=== PATIENT | female | born 1995 | race Caucasian/White ===

== ENCOUNTER 2016-08-07 23:18 | Emergency (ER) | payer SELFPAY ==
[~2016-08-07] VITALS: Ht 177.8 cm; Wt 104.4 kg
[~2016-08-07 23:18] MED LIST: CIPR-9 PO
[2016-08-07 23:27] VITALS: BP 130/75; PULSE 87; RESP 18; TEMP 98.5; O2SAT 99
[2016-08-08] VITALS (9 sets, daily range): BP systolic 102–122; BP diastolic 40–67; PULSE 64–80; RESP 8–18; O2SAT 77–100
[2016-08-08] MEDS ORDERED: PANTOPRAZOLE SODIUM 40 MG VIAL IVP ONE (00:45)
[2016-08-08] MEDS ORDERED: FAMOTIDINE 20 MG/2 ML VIAL IV PUSH ONE (00:45)
[2016-08-08] MEDS ORDERED: HYDROmorphone HCL PF 1 MG/ML VIAL IVS ONE (00:45)
[2016-08-08] MEDS ORDERED: SODIUM CHLORIDE 0.9% FLUSH 5 ML FLUSH IVF PRN (00:45)
[2016-08-08] MEDS ORDERED: ONDANSETRON HCL 4 MG/2 ML VIAL IVP ONE (00:45)
--- NOTE | 2016-08-08 00:45 | PD ---
HPI Chief Complaint: GI Complaint Time Seen by Provider: 00:38 Travel History International Travel<30 days: No Contact w/Intl Traveler<30days: No Traveled to known affect area: No History of Present Illness HPI The patient is a 21-year-old female that complains of nausea, vomiting and diarrhea for 8 hours today. There is no blood in the vomitus or stool. She denies any fever. She complains of bilateral lower quadrant pain and a little bit of epigastric pain. She states there is no possibility of . She still has her gallbladder and appendix. PFSH Past Medical History Diminished Hearing: No GERD: Yes Immunizations Current: Yes Tetanus Vaccination: Unknown Influenza Vaccination: No ?: Not LMP: 07/24/16 : 2 Para: 2 Miscarriage: 0 Ovarian Cysts: Yes Past Surgical History Surgical History: No Previous Surgery Social History Alcohol Use: Yes (OCC) Tobacco Use: No (07/31 PPD) Substance Use: No Allergies-Medications (Allergen,Severity, Reaction): Coded Allergies: Penicillin (Verified Allergy, Severe, Hives, 08/07/16) Uncoded Allergies: ALL CILLINS (Allergy, Intermediate, HIVES, THROAT SWELLING, 07/09/16) Reported Meds & Prescriptions Reported Meds & Active Scripts Active Phenergan (Promethazine HCl) 25 Mg Tab 25 Mg PO Q6H PRN Review of Systems Except as stated in HPI: all other systems reviewed are Neg Physical Exam Narrative GENERAL: The patient is alert, oriented 3, moderately dehydrated appearing in moderate apparent distress with her lower quadrant pain. Her vital signs are normal. SKIN: Warm and dry. HEAD: Atraumatic. Normocephalic. EYES: Pupils equal and round. No scleral icterus. No injection or drainage. ENT: No nasal bleeding or discharge. Mucous membranes pink and moist. NECK: Trachea midline. No JVD. CARDIOVASCULAR: Regular rate and rhythm. No murmur appreciated. RESPIRATORY: No accessory muscle use. Clear to auscultation. Breath sounds equal bilaterally. GASTROINTESTINAL: Abdomen soft, with tenderness to direct palpation in the bilateral lower quadrants, nondistended. Hepatic and splenic margins not palpable. No guarding or rebound is present. MUSCULOSKELETAL: No obvious deformities. No clubbing. No cyanosis. No edema. NEUROLOGICAL: Awake and alert. No obvious cranial nerve deficits. Motor grossly within normal limits. Normal speech. PSYCHIATRIC: Appropriate mood and affect; insight and judgment normal. Data Data Last Documented VS Vital Signs Date Time Temp Pulse Resp B/P Pulse Ox O2 Delivery O2 Flow Rate FiO2 08/08/16 02:05 78 18 107/64 100 Room Air 08/08/16 01:05 2 08/07/16 23:27 98.5 Orders Beta Hcg (Quant/Titer) (08/08/16 00:42) Complete Blood Count With Diff (08/08/16 00:42) Comprehensive Metabolic Panel (08/08/16 00:42) Lipase (08/08/16 00:42) Urinalysis - C+S If Indicated (08/08/16 00:42) Iv Access Insert/Monitor (08/08/16 00:42) Ecg Monitoring (08/08/16 00:42) Oximetry (08/08/16 00:42) Ondansetron Inj (Zofran Inj) (08/08/16 00:45) Pantoprazole Inj (Protonix Inj) (08/08/16 00:45) Sodium Chloride 0.9% Flush (Ns Flush) (08/08/16 00:45) Famotidine Inj (Pepcid Inj) (08/08/16 00:45) Hydromorphone Pf Inj (Dilaudid Pf Inj) (08/08/16 00:45) Sodium Chlor 0.9% 1000 Ml Inj (Ns 1000 M (08/08/16 00:45) Ondansetron Inj (Zofran Inj) (08/08/16 01:30) Sodium Chlor 0.9% 1000 Ml Inj (Ns 1000 M (08/08/16 02:15) Labs Laboratory Tests Test 08/08/16 00:00 White Blood Count 8.2 TH/MM3 Red Blood Count 5.20 MIL/MM3 Hemoglobin 14.3 GM/DL Hematocrit 44.7 % Mean Corpuscular Volume 86.0 FL Mean Corpuscular Hemoglobin 27.6 PG Mean Corpuscular Hemoglobin 32.1 % Concent Red Cell Distribution Width 13.3 % Platelet Count 220 TH/MM3 Mean Platelet Volume 8.9 FL Neutrophils (%) (Auto) 88.3 % Lymphocytes (%) (Auto) 6.0 % Monocytes (%) (Auto) 5.0 % Eosinophils (%) (Auto) 0.5 % Basophils (%) (Auto) 0.2 % Neutrophils # (Auto) 7.3 TH/MM3 Lymphocytes # (Auto) 0.5 TH/MM3 Monocytes # (Auto) 0.4 TH/MM3 Eosinophils # (Auto) 0.0 TH/MM3 Basophils # (Auto) 0.0 TH/MM3 CBC Comment DIFF FINAL Differential Comment Sodium Level 141 MEQ/L Potassium Level 3.7 MEQ/L Chloride Level 106 MEQ/L Carbon Dioxide Level 21.5 MEQ/L Anion Gap 14 MEQ/L Blood Urea Nitrogen 10 MG/DL Creatinine 0.81 MG/DL Estimat Glomerular Filtration 88 ML/MIN Rate Random Glucose 138 MG/DL Calcium Level 9.2 MG/DL Total Bilirubin 1.1 MG/DL Aspartate Amino Transf 9 U/L (AST/SGOT) Alanine Aminotransferase 22 U/L (ALT/SGPT) Alkaline Phosphatase 90 U/L Total Protein 7.4 GM/DL Albumin 3.9 GM/DL Lipase 79 U/L Human Chorionic Gonadotropin, LESS THAN 1 Quant MIU/ML MDM Medical Decision Making Medical Screen Exam Complete: Yes Emergency Medical Condition: Yes Medical Record Reviewed: Yes Interpretation(s) The CBC is normal except for 88% neutrophils. The complete metabolic profile shows a GFR of 88, glucose 138, total bilirubin of 1.1 but is otherwise unremarkable. The beta-hCG is less than 1, the patient is not . Differential Diagnosis Viral gastroenteritis, colitis, appendicitis, diverticulitisunlikely, cholecystitisunlikely, , dehydration, electrolyte disorder, renal insufficiency Narrative Course The patient appears to have a viral gastritis. It is now 0-13 and the patient is successfully holding down Gatorade and has no nausea at this time. Her pain is subsided to nearly nothing. It is now 0-18 and the patient still has not urinated and we will add a third liter of saline for her hydration. Diagnosis Primary Impression: Viral gastroenteritis Additional Impression: Moderate dehydration Additional Instructions: Take the Phenergan regularly, every 6 hours. This is so that you can drink clear liquids and continue to rehydrate yourself. Your urine showed ultimately be very pale in color when you are adequately hydrated. Follow-up next week with her primary care physician. Med/Other Pt SpecificInfo: Prescription(s) given Scripts Promethazine (Phenergan)25 Mg Tab25 Mg PO Q6H PRN (Nausea/Vomiting) #30 TAB Ref 0 Prov:Maxime Esparza MD 08/08/16 Disposition: 01 DISCHARGE HOME Condition: Stable Maxime Esparza MD Aug 08, 2016 00:45
[2016-08-08] MEDS: SODIUM CHLOR 0.9% 1000 ML INJ 1,000 ML IV SCH ×2 (00:54→01:23)
[2016-08-08 01:23] LABS: AUTOMATED NEUTROPHIL # 7.3 TH/MM3 (1.8-7.7); BASOPHIL % 0.2 % (0.0-2.0); EOSINOPHIL % 0.5 % (0.0-4.0); HEMATOCRIT 44.7 % (35.0-46.0); HEMO FLAGS DIFF FINAL; LYMPHOCYTE # 0.5 TH/MM3 (1.0-4.8); MEAN CORPUSCULAR HEMOGLOBIN 27.6 PG (27.0-34.0); MEAN CORPUSCULAR HGB CONC 32.1 % (32.0-36.0); NEUT % 88.3 % (16.0-70.0); PLATELET COUNT 220 TH/MM3 (150-450); RED CELL DISTRIBUTION WIDTH 13.3 % (11.6-17.2); WHITE BLOOD COUNT 8.2 TH/MM3 (4.0-11.0)
[2016-08-08] MEDS ORDERED: ONDANSETRON HCL 4 MG/2 ML VIAL IV ONE (01:30)
[2016-08-08 01:34] LABS: CHLORIDE 106 MEQ/L (98-107); POTASSIUM 3.7 MEQ/L (3.5-5.1); SODIUM (NA) 141 MEQ/L (136-145)
[2016-08-08 01:38] LABS: ANION GAP 14 MEQ/L (5-15); BICARBONATE 21.5 MEQ/L (21.0-32.0)
[2016-08-08 01:39] LABS: BLOOD UREA NITROGEN 10 MG/DL (7-18)
[2016-08-08 01:41] LABS: ALT (GPT) 22 U/L (10-53); AST (GOT) 9 U/L (15-37); GLOMERULAR FILTRATION RATE 88 ML/MIN (>89)
[2016-08-08 01:43] LABS: TOTAL BILIRUBIN ADULT 1.1 MG/DL (0.2-1.0)
[2016-08-08 01:44] LABS: ALKALINE PHOSPHATASE 90 U/L (45-117)
[2016-08-08 01:46] LABS: BETA HCG QUANT LESS THAN 1 MIU/ML (0-5)
[2016-08-08] MEDS ORDERED: SODIUM CHLOR 0.9% 1000 ML INJ 1,000 ML IV SCH (02:15)
[2016-08-08] MEDS ORDERED: PROM25TA5 PO (02:16)
[2016-08-08] MEDS ORDERED: PROMETHAZINE INJ 25 MG/ML VIAL IM ONE (03:00)
[2016-08-08 03:01] LABS: BLOOD, URINE NEG (NEG); GLUCOSE,URINE NEG (NEG); KETONE, URINE 40 mg/dL (NEG); NITRITE,URINE NEG (NEG); PH, URINE 8.5 (5.0-8.5)
[2016-08-08 03:06] LABS: URINE COLOR AMBER (YELLW/STRAW)
[2016-08-08 03:07] LABS: MUCUS URINE MOD /lpf (OCC)
[2016-08-08 03:08] LABS: WBC, URINE 0-2 /hpf (0-5)
[2016-08-08 03:09] LABS: COMMENT (UR) CULT NOT INDICATED; CULTURE IF INDICATED CULT NOT INDICATED
== END 2016-08-08 03:21 | disposition home or self-care (01) ==
LOC: PHED 23:18
DX: A08.4 Viral intestinal infection, unspecified (principal); E86.0 Dehydration
CPT/HCPCS: 80053; 81001; 83690; 84702; 85025; 96361; 96372; 96374; 96375; 96376; 99284; C9113; J1170; J2405; J2550; J7030

== ENCOUNTER 2016-09-19 21:37 | Emergency (ER) | payer SELFPAY ==
[~2016-09-19 21:37] MED LIST changes: -CIPR-9 PO; +PROM25TA5 PO
[2016-09-19 21:41] VITALS: BP 110/70; PULSE 94; RESP 20; TEMP 98.9
[2016-09-19] MEDS ORDERED: SODIUM CHLORIDE 0.9% FLUSH 5 ML FLUSH IVF PRN (23:30)
--- NOTE | 2016-09-20 00:01 | PD ---
HPI Chief Complaint: Respiratory Symptoms Time Seen by Provider: 23:56 Travel History International Travel<30 days: No Contact w/Intl Traveler<30days: No Traveled to known affect area: No History of Present Illness HPI 22 year-old female presents to the emergency department complaining of nausea vomiting and diarrhea for 6 weeks as well as nonproductive cough. Patient's last period ended yesterday and reports was normal for her and denies . Patient is 2 para 2 AB 0. Patient has history of previous ovarian cysts. Patient denies any chronic medical conditions. Patient previously smoked cigarettes and occasionally drinks alcohol but denies substance use. No previous surgeries. Patient was seen approximately 6 weeks ago for similar presentation at that time her evaluation was reportedly negative for an acute process. Patient states she has not improved since then and has not followed up with any primary care provider. Patient takes no medications on a daily basis. Patient has taken no acetaminophen or ibuprofen. Reportedly 2 days ago her temperature was 10 1F. Patient denies any sinus pressure drainage sore throat earache productive cough chest pain abdominal pain dysuria frequency urgency hematuria skin rash or joint pain or swelling. Patient states that she is unable to tolerate oral hydration or solid food secondary to nausea vomiting and diarrhea. No other family members with similar symptoms. No recent antibiotic use. Patient does report left flank pain. No prior history of kidney stones or pyelonephritis. PFSH Past Medical History Narrative Medical GERD, ovarian cyst, immunizations current, Ab0, occasional alcohol use; nursing notes reviewed Diminished Hearing: No GERD: Yes Immunizations Current: Yes Tetanus Vaccination: > 5 Years Influenza Vaccination: No ?: Unknown LMP: NOW : 2 Para: 2 Miscarriage: 0 Ovarian Cysts: Yes Social History Alcohol Use: Yes (RARE) Tobacco Use: No (1/2 PPD) Substance Use: No Allergies-Medications (Allergen,Severity, Reaction): Coded Allergies: Penicillin (Verified Allergy, Severe, Hives, 09/19/16) Uncoded Allergies: ALL CILLINS (Allergy, Intermediate, HIVES, THROAT SWELLING, 07/09/16) Reported Meds & Prescriptions Reported Meds & Active Scripts Active No Active Prescriptions or Reported Medications Review of Systems Except as stated in HPI: all other systems reviewed are Neg (But didn't have any) Physical Exam Narrative GENERAL: Well-developed well-nourished female in no apparent distress no respiratory distress SKIN: Warm and dry. HEAD: Normocephalic. EYES: No scleral icterus. No injection or drainage. ENT: Mucous members moist airway is patent no posterior pharyngeal erythema edema or exudative change. NECK: Supple, trachea midline. No JVD or lymphadenopathy. No meningismus no nuchal rigidity CARDIOVASCULAR: Regular rate and rhythm without murmurs, gallops, or rubs. RESPIRATORY: Breath sounds equal bilaterally. No accessory muscle use. GASTROINTESTINAL: Abdomen soft, non-tender, nondistended. MUSCULOSKELETAL: No cyanosis, or edema. BACK: Nontender without obvious deformity. No CVA tenderness. Data Data Last Documented VS Vital Signs Date Time Temp Pulse Resp B/P Pulse Ox O2 Delivery O2 Flow Rate FiO2 09/19/16 22:29 Room Air 09/19/16 21:41 98.9 94 20 110/70 Orders Complete Blood Count With Diff (09/19/16 23:24) Comprehensive Metabolic Panel (09/19/16 23:24) Lipase (09/19/16 23:24) Urinalysis - C+S If Indicated (09/19/16 23:24) Iv Access Insert/Monitor (09/19/16 23:24) Ecg Monitoring (09/19/16 23:24) Oximetry (09/19/16 23:24) Sodium Chloride 0.9% Flush (Ns Flush) (09/19/16 23:30) Chest, Single Ap (09/19/16 23:24) Ed Urine Pregnancytest Poc (09/19/16 23:24) Labs Laboratory Tests Test 09/19/16 23:40 White Blood Count 6.6 TH/MM3 Red Blood Count 4.65 MIL/MM3 Hemoglobin 13.2 GM/DL Hematocrit 39.7 % Mean Corpuscular Volume 85.4 FL Mean Corpuscular Hemoglobin 28.5 PG Mean Corpuscular Hemoglobin 33.3 % Concent Red Cell Distribution Width 14.0 % Platelet Count 210 TH/MM3 Mean Platelet Volume 7.9 FL Neutrophils (%) (Auto) 70.7 % Lymphocytes (%) (Auto) 18.0 % Monocytes (%) (Auto) 9.4 % Eosinophils (%) (Auto) 1.5 % Basophils (%) (Auto) 0.4 % Neutrophils # (Auto) 4.7 TH/MM3 Lymphocytes # (Auto) 1.2 TH/MM3 Monocytes # (Auto) 0.6 TH/MM3 Eosinophils # (Auto) 0.1 TH/MM3 Basophils # (Auto) 0.0 TH/MM3 CBC Comment DIFF FINAL Differential Comment Urine Collection Type Urine Color ALIZA Urine Turbidity CLEAR Urine pH 6.0 Urine Specific [place] 1.028 Urine Protein TRACE mg/dL Urine Glucose (UA) NEG mg/dL Urine Ketones TRACE mg/dL Urine Occult Blood MOD Urine Nitrite NEG Urine Bilirubin NEG Urine Leukocyte Esterase NEG Urine RBC 0-3 /hpf Urine WBC 0-2 /hpf Urine Squamous Epithelial 0-5 /hpf Cells Urine Bacteria OCC /hpf Urine Mucus MOD /lpf Microscopic Urinalysis Comment CULT NOT INDICATED Sodium Level 141 MEQ/L Potassium Level 3.4 MEQ/L Chloride Level 106 MEQ/L Carbon Dioxide Level 26.8 MEQ/L Anion Gap 8 MEQ/L Blood Urea Nitrogen 7 MG/DL Creatinine 0.73 MG/DL Estimat Glomerular Filtration 100 ML/MIN Rate Random Glucose 90 MG/DL Calcium Level 8.6 MG/DL Total Bilirubin 0.7 MG/DL Aspartate Amino Transf 17 U/L (AST/SGOT) Alanine Aminotransferase 30 U/L (ALT/SGPT) Alkaline Phosphatase 93 U/L Total Protein 7.1 GM/DL Albumin 3.7 GM/DL Lipase 87 U/L [facility] Medical Decision Making Medical Screen Exam Complete: Yes Emergency Medical Condition: Yes Medical Record Reviewed: Yes Interpretation(s) Lhrev-[id number] hCG: negative Chest x-ray no lobar infiltrate no effusion no pneumothorax no acute disease noted Differential Diagnosis URI, gastroenteritis, electrolyte disturbance, intestinal parasite, pyelonephritis, renal colic, dehydration Narrative Course Non-ill appearing female presents reporting 6 weeks of vomiting diarrhea and more recently flank pain. IV access obtained specimens collected and sent for resulting. [id number] hCG negative @12:45 AM patient informed of lab results and is stable for outpatient management; no significant abnormalities for history of 6 weeks of diarrhea and vomiting mild hypokalemia 3.4 that can be corrected with dietary intake. Patient is otherwise stable for outpatient management and given prescription for as needed Zofran sublingual and Phenergan suppositories. Patient is encouraged follow-up with primary care provider. Diagnosis Primary Impression: Cough Additional Impression: Gastroenteritis Referrals: Primary Care Physician call for appointment Patient Instructions: General Instructions Additional Instructions: Follow clear liquid diet for 12-24 hours advance as tolerated plan/Iftikhar diet and regular diet Take medication as prescribed as needed for nausea and/or vomiting Follow-up with primary care provider Return to the emergency department for any concerns or change in condition Take acetaminophen/Tylenol every 4 hours as needed for fever 100.4F or greater May use [id number]-[id number] Robitussin as needed for cough may use [id number] Robitussin as needed for cough Add potassium containing foods and beverages to dietary intake Med/Other Pt SpecificInfo: Prescription(s) given Scripts Promethazine Supp (Phenergan Supp)25 Mg Supp25 Mg RECTAL Q6H PRN (NAUSEA OR VOMITING) #6 SUPP Ref 0 Prov:Cris Connor MD 09/20/16 Ondansetron Odt (Zofran Odt)4 Mg Tab4 Mg SL Q6HR PRN (Nausea/Vomiting) #10 TAB Ref 0 Prov:Cris Connor MD 09/20/16 Cris Connor MD Sep 20, 2016 00:01
[2016-09-20 00:14] LABS: CHLORIDE 106 MEQ/L (98-107); POTASSIUM 3.4 MEQ/L (3.5-5.1); SODIUM (NA) 141 MEQ/L (136-145)
[2016-09-20 00:15] LABS: AUTOMATED NEUTROPHIL # 4.7 TH/MM3 (1.8-7.7); BASOPHIL % 0.4 % (0.0-2.0); EOSINOPHIL # 0.1 TH/MM3 (0-0.4); EOSINOPHIL % 1.5 % (0.0-4.0); HEMATOCRIT 39.7 % (35.0-46.0); HEMO FLAGS DIFF FINAL; LYMPHOCYTE # 1.2 TH/MM3 (1.0-4.8); MEAN CELL VOLUME 85.4 FL (80.0-100.0); MEAN CORPUSCULAR HEMOGLOBIN 28.5 PG (27.0-34.0); MEAN CORPUSCULAR HGB CONC 33.3 % (32.0-36.0); MONO % 9.4 % (0.0-8.0); NEUT % 70.7 % (16.0-70.0); PLATELET COUNT 210 TH/MM3 (150-450); RED BLOOD COUNT 4.65 MIL/MM3 (4.00-5.30); WHITE BLOOD COUNT 6.6 TH/MM3 (4.0-11.0)
[2016-09-20 00:18] LABS: BLOOD, URINE MOD (NEG); GLUCOSE,URINE NEG (NEG); KETONE, URINE TRACE mg/dL (NEG); NITRITE,URINE NEG (NEG)
[2016-09-20 00:20] LABS: ANION GAP 8 MEQ/L (5-15); BICARBONATE 26.8 MEQ/L (21.0-32.0); BLOOD UREA NITROGEN 7 MG/DL (7-18)
[2016-09-20 00:23] LABS: ALT (GPT) 30 U/L (10-53); AST (GOT) 17 U/L (15-37); GLOMERULAR FILTRATION RATE 100 ML/MIN (>89)
[2016-09-20 00:24] LABS: MUCUS URINE MOD /lpf (OCC); TOTAL BILIRUBIN ADULT 0.7 MG/DL (0.2-1.0); URINE COLOR AMBER (YELLW/STRAW)
[2016-09-20 00:25] LABS: ALKALINE PHOSPHATASE 93 U/L (45-117); RBC, URINE 0-3 /hpf (0-3); SQUAMOUS EPITHELIAL CELL URINE 0-5 /hpf (0-5)
[2016-09-20 00:26] LABS: BACTERIA, URINE OCC /hpf; WBC, URINE 0-2 /hpf (0-5)
[2016-09-20 00:27] LABS: COMMENT (UR) CULT NOT INDICATED; CULTURE IF INDICATED CULT NOT INDICATED
[2016-09-20] MEDS ORDERED: ZOFR4TAB3 SL (00:43)
[2016-09-20] MEDS ORDERED: PROM1SUP7 RECTAL (00:43)
--- NOTE | 2016-09-20 00:46 | RADHPO ---
EXAM DATE/TIME: 09/19/2016 23:36 [facility] COMPARISON: No previous studies available for comparison. INDICATIONS : Cough and back pain. MEDICAL HISTORY : None. SURGICAL HISTORY : None. ENCOUNTER: Initial ACUITY: 1 day PAIN SCORE: 4/10 LOCATION: Bilateral chest FINDINGS: A single view of the chest demonstrates the lungs to be symmetrically aerated without evidence of mas s, infiltrate or effusion. The cardiomediastinal contours are unremarkable. Osseous structures are intact. CONCLUSION: No acute disease. Trae Haque MD on September 20, 2016 at 0:45 Board Certified Radiologist. This report was verified electronically.
[2016-09-20 01:21] VITALS: BP 135/74
== END 2016-09-20 01:23 | disposition home or self-care (01) ==
LOC: PHED 21:37
DX: R05 Cough (principal); K52.9 Noninfective gastroenteritis and colitis, unspecified; R10.9 Unspecified abdominal pain; E87.6 Hypokalemia; F17.200 Nicotine dependence, unspecified, uncomplicated; Z87.42 Personal history of other diseases of the female genital tract; Z87.19 Personal history of other diseases of the digestive system
CPT/HCPCS: 71010; 80053; 81001; 83690; 84703; 85025; 99284

== ENCOUNTER 2016-09-28 20:14 | Emergency (ER) | payer SELFPAY ==
[~2016-09-28] VITALS: Ht 175.3 cm; Wt 104.8 kg
[~2016-09-28 20:14] MED LIST changes: +PROM1SUP7 RECTAL; -PROM25TA5 PO; +ZOFR4TAB3 SL
[2016-09-28 20:50] VITALS: BP 109/64; PULSE 87; RESP 18; TEMP 98.7; O2SAT 98
--- NOTE | 2016-09-28 23:07 | PD ---
HPI Chief Complaint: Musculoskeletal Complaint Time Seen by Provider: 23:05 Travel History International Travel<30 days: No Contact w/Intl Traveler<30days: No Traveled to known affect area: No History of Present Illness HPI This 21-year-old female is complaining of left-sided chest pain. She's been having this pain for a couple weeks. She has had a cough and was coughing quite hard. Today she was lifting up her child and noticed that the pain was quite severe. She felt a crack on the left side with chest. This is where her pain is. Pain is aggravated by deep breathing and certain movements. PFSH Past Medical History Medical History: Denies Significant Hx Diminished Hearing: No GERD: Yes Immunizations Current: Yes Tetanus Vaccination: < 5 Years Influenza Vaccination: No ?: Unknown LMP: 2 WEEKS AGO : 2 Para: 2 Miscarriage: 0 Ovarian Cysts: Yes Past Surgical History Surgical History: No Previous Surgery Social History Alcohol Use: Yes (RARE) Tobacco Use: No (1/2 PPD) Substance Use: No Allergies-Medications (Allergen,Severity, Reaction): Coded Allergies: Penicillin (Verified Allergy, Severe, Hives, 09/19/16) Uncoded Allergies: ALL CILLINS (Allergy, Intermediate, HIVES, THROAT SWELLING, 07/09/16) Reported Meds & Prescriptions Reported Meds & Active Scripts Active Phenergan Supp (Promethazine HCl) 25 Mg Supp 25 Mg RECTAL Q6H PRN Zofran Odt (Ondansetron Odt) 4 Mg Tab 4 Mg SL Q6HR PRN Review of Systems General / Constitutional: No: Fever, Chills Eyes: No: Diploplia, Blurred Vision HENT: No: Headaches, Vertigo Cardiovascular: Positive: Chest Pain or Discomfort, No: Palpitations, Irregular Rhythm Respiratory: Positive: Cough, Pleuritic Pain Gastrointestinal: No: Nausea, Vomiting Genitourinary: No: Urgency, Frequency Musculoskeletal: No: Myalgias, Arthralgias Skin: No Itching Physical Exam Narrative GENERAL: Well-developed female SKIN: Warm and dry. HEAD: Atraumatic. Normocephalic. EYES: Pupils equal and round. No scleral icterus. No injection or drainage. ENT: No nasal bleeding or discharge. Mucous membranes pink and moist. NECK: Trachea midline. No JVD. CARDIOVASCULAR: Regular rate and rhythm. No murmur appreciated. RESPIRATORY: No accessory muscle use. Clear to auscultation. Breath sounds equal bilaterally. His tenderness to palpation of the mid chest and left-sided posterior axillary line GASTROINTESTINAL: Abdomen soft, non-tender, nondistended. Hepatic and splenic margins not palpable. MUSCULOSKELETAL: No obvious deformities. No clubbing. No cyanosis. No edema. NEUROLOGICAL: Awake and alert. No obvious cranial nerve deficits. Motor grossly within normal limits. Normal speech. PSYCHIATRIC: Appropriate mood and affect; insight and judgment normal. Data Data Last Documented VS Vital Signs Date Time Temp Pulse Resp B/P Pulse Ox O2 Delivery O2 Flow Rate FiO2 09/28/16 20:50 98.7 87 18 109/64 98 Orders Ribs, Uni (W/Exp Cxr-Min 3vw) (09/28/16 23:05) Acetamin-Hydrocod 325-5 Mg ([place] 5-325 (09/28/16 23:15) MDM Medical Decision Making Medical Screen Exam Complete: Yes Emergency Medical Condition: Yes Medical Record Reviewed: Yes Differential Diagnosis Differential includes chest wall contusion, rib fracture, pneumothorax Narrative Course Clinically the patient has well localized pain consistent with a rib fracture Rib films left side of her obtained and have been read as negative. Diagnosis Primary Impression: Rib fractures Scripts Hydrocodone-Acetaminophen (Lortab)7.5-325 Mg Tab1 Tab PO Q4H PRN (PAIN) #30 TAB Ref 0 Prov:Reggie Burnham MD 09/28/16 Disposition: 01 DISCHARGE HOME Condition: Stable Reggie Burnham MD Sep 28, 2016 23:07
[2016-09-28] MEDS ORDERED: ACETAMINOPHEN/HYDROcodone 325 MG/5 MG TAB PO ONE (23:15)
--- NOTE | 2016-09-28 23:44 | RADHPO ---
EXAM DATE/TIME: 09/28/2016 23:14 [facility] COMPARISON: No previous studies available for comparison. INDICATIONS : Left axillary rib pain for 2 hours. Patient states coughing caused the onset of pain. MEDICAL HISTORY : None. SURGICAL HISTORY : None. ENCOUNTER: Initial ACUITY: 1 day PAIN SCORE: 10/10 LOCATION: Left axillary ribs FINDINGS: Multiple views of the left ribs were performed. There is no evidence of displaced fracture. No dest ructive lesions or areas of periosteal thickening are seen. Expiratory view of the chest is negative for pneumothorax. The mediastinal structures are midline. CONCLUSION: Unremarakble examination of the left ribs and chest. Trae Daniels MD on September 28, 2016 at 23:40 Board Certified Radiologist. This report was verified electronically.
[2016-09-28] MEDS ORDERED: HYDR-3534 PO (23:52)
[2016-09-29 00:07] VITALS: RESP 18
== END 2016-09-29 00:08 | disposition home or self-care (01) ==
LOC: PHEFT 20:14
DX: S22.32XA Fracture of one rib, left side, initial encounter for closed fracture (principal); Y93.F2 Activity, caregiving, lifting; Y92.9 Unspecified place or not applicable; Y99.9 Unspecified external cause status
CPT/HCPCS: 71101; 99283

== ENCOUNTER 2017-01-11 09:56 | Observation (INO) | payer OTHER ==
[2017-01-11] VITALS (9 sets, daily range): BP systolic 83–124; BP diastolic 44–74; PULSE 63–97; RESP 16–22; TEMP 96.6–98.7; O2SAT 93–100
[~2017-01-11] VITALS: Ht 177.8 cm; Wt 93.9 kg
[~2017-01-11 09:56] MED LIST changes: +HYDR-3534 PO
[2017-01-11] MEDS ORDERED: ONDANSETRON HCL 4 MG/2 ML VIAL IVP ONE (10:15)
[2017-01-11] MEDS ORDERED: SODIUM CHLOR 0.9% 1000 ML INJ 1,000 ML IV SCH (10:15)
[2017-01-11 10:45] LABS: AUTOMATED NEUTROPHIL # 11.7 TH/MM3 (1.8-7.7); BASOPHIL % 0.2 % (0.0-2.0); EOSINOPHIL # 0.1 TH/MM3 (0-0.4); EOSINOPHIL % 0.6 % (0.0-4.0); HEMATOCRIT 44.9 % (35.0-46.0); LYMPHOCYTE # 2.1 TH/MM3 (1.0-4.8); MEAN CELL VOLUME 85.3 FL (80.0-100.0); MONO % 6.7 % (0.0-8.0); NEUT % 78.5 % (16.0-70.0); PLATELET COUNT 293 TH/MM3 (150-450); RED BLOOD COUNT 5.26 MIL/MM3 (4.00-5.30); RED CELL DISTRIBUTION WIDTH 12.8 % (11.6-17.2); WHITE BLOOD COUNT 14.9 TH/MM3 (4.0-11.0)
[2017-01-11 10:50] LABS: HEMO FLAGS DIFF FINAL
[2017-01-11 10:54] LABS: POTASSIUM 3.3 MEQ/L (3.5-5.1)
[2017-01-11 10:59] LABS: BICARBONATE 18.2 MEQ/L (21.0-32.0)
[2017-01-11] MEDS ORDERED: METOCLOPRAMIDE HCL 10 MG/2 ML VIAL IV PUSH ONE (11:00)
[2017-01-11 11:03] LABS: INDIRECT BILIRUBIN 0.8 MG/DL (0.0-0.8)
[2017-01-11] MEDS: SODIUM CHLORIDE 0.9% FLUSH 10 ML FLUSH IV FLUSH PRN ×2 (11:14→12:21)
[2017-01-11] MEDS ORDERED: ONDANSETRON HCL 4 MG/2 ML VIAL IV PUSH ONE (11:30)
[2017-01-11] MEDS ORDERED: MORPHINE SULFATE 4 MG/ML INJ IV PUSH ONE ×2 (11:30→14:30)
[2017-01-11] MEDS ORDERED: FAMOTIDINE 20 MG/2 ML VIAL IV PUSH ONE (11:30)
[2017-01-11] MEDS ORDERED: diphenhydrAMINE HCL 50 MG/ML VIAL IV PUSH ONE (12:00)
[2017-01-11 13:22] LABS: BETA HCG QUANT LESS THAN 1 MIU/ML (0-5)
[2017-01-11] MEDS ORDERED: IOHEXOL 350 MG/ML 10 ML VIAL (for RAD DIAG) IV ONE (13:45)
--- NOTE | 2017-01-11 14:04 | RADHPO ---
EXAM DATE/TIME: 01/11/2017 13:31 [facility] COMPARISON: No previous studies available for comparison. INDICATIONS : Upper abdominal pain. Nausea, vomiting and diarrhea. IV CONTRAST: 85 cc Omnipaque 350 (iohexol) IV ORAL CONTRAST: No oral contrast ingested. RADIATION DOSE: 15.46 CTDIvol (mGy) MEDICAL HISTORY : Gastroesophageal reflux disease. SURGICAL HISTORY : None. ENCOUNTER: Initial ACUITY: 1 day PAIN SCALE: 7/10 LOCATION: Bilateral upper quadrant TECHNIQUE: Volumetric scanning of the abdomen and pelvis was performed. Using automated exposure control and ad justment of the mA and/or kV according to patient size, radiation dose was kept as low as reasonably achievable to obtain optimal diagnostic quality images. FINDINGS: LOWER LUNGS: The visualized lower lungs are clear. LIVER: Mild hepatomegaly is noted. Homogeneous density without lesion. There is no dilation of the biliary tree. No calcified gallstones. SPLEEN: Mild splenomegaly is noted. PANCREAS: Within normal limits. KIDNEYS: Normal in size and shape. There is no mass, stone or hydronephrosis. ADRENAL GLANDS: Within normal limits. VASCULAR: There is no aortic aneurysm. BOWEL/MESENTERY: The stomach, small bowel, and colon demonstrate no acute abnormality. There is no free intraperitone al air or fluid. ABDOMINAL WALL: Within normal limits. RETROPERITONEUM: There is no lymphadenopathy. BLADDER: No wall thickening or mass. REPRODUCTIVE: Within normal limits. INGUINAL: There is no lymphadenopathy or hernia. MUSCULOSKELETAL: Mild scoliosis of the thoraco-lumbar spine is noted. CONCLUSION: 1. Mild hepatosplenomegaly. 2. Mild scoliosis of the thoraco-lumbar spine. Papi Amaro MD on January 11, 2017 at 13:59 Board Certified Radiologist. This report was verified electronically.
[2017-01-11] MEDS ORDERED: PROCHLORPERAZINE INJ 10 MG/2 ML VIAL IV PUSH ONE (14:30)
--- NOTE | 2017-01-11 14:54 | PD ---
HPI Chief Complaint: Abdominal Pain Time Seen by Provider: 10:13 Travel History International Travel<30 days: No Contact w/Intl Traveler<30days: No Traveled to known affect area: No History of Present Illness HPI Patient is a 21-year-old female who comes in complaining of nausea, vomiting, diarrhea that started this morning. Last thing she ate was pizza, but no one else sick from eating it. She says she has some epigastric abdominal pain. She has not had any fever or chills. She denies any sick contacts. [facility] Past Medical History Diminished Hearing: No GERD: Yes Immunizations Current: Yes ?: Not LMP: "DUE ANY DAY" : 2 Para: 2 Miscarriage: 0 Ovarian Cysts: Yes Social History Alcohol Use: Yes (RARE) Tobacco Use: No (1/2 PPD) Substance Use: No Allergies-Medications (Allergen,Severity, Reaction): Coded Allergies: Penicillin (Verified Allergy, Severe, Hives, 01/11/17) Uncoded Allergies: ALL CILLINS (Allergy, Intermediate, HIVES, THROAT SWELLING, 07/09/16) Reported Meds & Prescriptions Reported Meds & Active Scripts Active Review of Systems Except as stated in HPI: all other systems reviewed are Neg General / Constitutional: No: Fever, Chills HENT: No: Headaches, Lightheadedness Cardiovascular: No: Chest Pain or Discomfort Respiratory: No: Shortness of Breath Gastrointestinal: Positive: Nausea, Vomiting, Diarrhea, Abdominal Pain Genitourinary: No: Dysuria Skin: No Rash, No Change in Pigmentation Neurologic: No: Weakness, Dizziness Physical Exam Narrative GENERAL: Awake and alert, in mild distress due to nausea and vomiting. SKIN: Focused skin assessment warm/dry. HEAD: Atraumatic. Normocephalic. EYES: Pupils equal and round. No scleral icterus. ENT: No nasal bleeding or discharge. Mucous membranes pink and moist. NECK: Trachea midline. No JVD. CARDIOVASCULAR: Regular rate and rhythm. No murmur appreciated. RESPIRATORY: No accessory muscle use. Clear to auscultation. Breath sounds equal bilaterally. GASTROINTESTINAL: Abdomen soft, non-tender, nondistended. MUSCULOSKELETAL: No obvious deformities. No clubbing. No cyanosis. No edema. NEUROLOGICAL: Awake and alert. No obvious cranial nerve deficits. Motor grossly within normal limits. Normal speech. PSYCHIATRIC: Appropriate mood and affect; insight and judgment normal. Data Data Last Documented VS Vital Signs Date Time Temp Pulse Resp B/P Pulse Ox O2 Delivery O2 Flow Rate FiO2 01/11/17 14:00 64 16 124/73 100 Room Air 01/11/17 10:44 97.7 Orders Basic Metabolic Panel (Bmp) (01/11/17 10:15) Complete Blood Count With Diff (01/11/17 10:15) Lipase (01/11/17 10:15) Iv Access Insert/Monitor (01/11/17 10:15) Ecg Monitoring (01/11/17 10:15) Oximetry (01/11/17 10:15) Ondansetron Inj (Zofran Inj) (01/11/17 10:15) Sodium Chlor 0.9% 1000 Ml Inj (Ns 1000 M (01/11/17 10:15) Sodium Chloride 0.9% Flush (Ns Flush) (01/11/17 10:15) Ed Urine Pregnancytest Poc (01/11/17 10:15) Hepatic Functional Panel (01/11/17 10:15) Metoclopramide Inj (Reglan Inj) (01/11/17 11:00) Ct Abd/Pel W Iv Contrast(Rout) (01/11/17 ) Morphine Inj (Morphine Inj) (01/11/17 11:30) Ondansetron Inj (Zofran Inj) (01/11/17 11:30) Famotidine Inj (Pepcid Inj) (01/11/17 11:30) Diphenhydramine Inj (Benadryl Inj) (01/11/17 12:00) Beta Hcg (Quant/Titer) (01/11/17 13:01) Iohexol 350 Inj (Omnipaque 350 Inj) (01/11/17 13:45) Prochlorperazine Inj (Compazine Inj) (01/11/17 14:30) Morphine Inj (Morphine Inj) (01/11/17 14:30) Admit Order (Ed Use Only) (01/11/17 ) Labs Laboratory Tests Test 01/11/17 10:25 White Blood Count 14.9 TH/MM3 Red Blood Count 5.26 MIL/MM3 Hemoglobin 15.2 GM/DL Hematocrit 44.9 % Mean Corpuscular Volume 85.3 FL Mean Corpuscular Hemoglobin 29.0 PG Mean Corpuscular Hemoglobin 34.0 % Concent Red Cell Distribution Width 12.8 % Platelet Count 293 TH/MM3 Mean Platelet Volume 8.2 FL Neutrophils (%) (Auto) 78.5 % Lymphocytes (%) (Auto) 14.0 % Monocytes (%) (Auto) 6.7 % Eosinophils (%) (Auto) 0.6 % Basophils (%) (Auto) 0.2 % Neutrophils # (Auto) 11.7 TH/MM3 Lymphocytes # (Auto) 2.1 TH/MM3 Monocytes # (Auto) 1.0 TH/MM3 Eosinophils # (Auto) 0.1 TH/MM3 Basophils # (Auto) 0.0 TH/MM3 CBC Comment DIFF FINAL Differential Comment Sodium Level 143 MEQ/L Potassium Level 3.3 MEQ/L Chloride Level 110 MEQ/L Carbon Dioxide Level 18.2 MEQ/L Anion Gap 15 MEQ/L Blood Urea Nitrogen 12 MG/DL Creatinine 0.80 MG/DL Estimat Glomerular Filtration 90 ML/MIN Rate Random Glucose 133 MG/DL Calcium Level 9.1 MG/DL Total Bilirubin 1.0 MG/DL Direct Bilirubin 0.2 MG/DL Indirect Bilirubin 0.8 MG/DL Aspartate Amino Transf 13 U/L (AST/SGOT) Alanine Aminotransferase 26 U/L (ALT/SGPT) Alkaline Phosphatase 95 U/L Total Protein 7.6 GM/DL Albumin 4.1 GM/DL Lipase 100 U/L Human Chorionic Gonadotropin, LESS THAN 1 Quant MIU/ML MDM Medical Decision Making Medical Screen Exam Complete: Yes Emergency Medical Condition: Yes Medical Record Reviewed: Yes Differential Diagnosis Gastroenteritis versus pancreatitis versus colitis versus cholecystitis Narrative Course Patient is a 21-year-old female who comes in complaining of nausea, vomiting, diarrhea. Patient is constantly retching and vomiting in the exam room, having several episodes of diarrhea in the stretcher. IV established, labs sent. Patient given Zofran and IV fluids. She continued to vomit despite the Zofran, given Reglan. Again, she continued to vomit, given additional dose of Zofran as well as Benadryl. She was given Compazine and placed in observation for PO intolerance. CT abd/pelvis performed shows no acute abnormalities. Diagnosis Primary Impression: Viral gastroenteritis Admitting Information Admitting Physician Requests: Observation Scripts Ondansetron Odt 4 Mg Tab4 Mg SL Q6HR PRN (Nausea/Vomiting) #10 TAB Ref 0 Prov:Ady Mosqueda MD PhD 01/12/17 Condition: Stable Sarah Prieto MD Jan 11, 2017 14:54
[2017-01-11] MEDS ORDERED: NS + KCL 20 MEQ INJ 1,000 ML IV SCH (15:43)
[2017-01-11] MEDS ORDERED: PROCHLORPERAZINE INJ 10 MG/2 ML VIAL IV PUSH PRN (15:45)
[2017-01-11] MEDS ORDERED: ONDANSETRON HCL 4 MG/2 ML VIAL IV PRN (15:45)
[2017-01-11] MEDS ORDERED: SODIUM CHLORIDE 0.9% FLUSH 10 ML FLUSH IV FLUSH PRN (15:45)
--- NOTE | 2017-01-11 15:52 | HHI.HP ---
HPI Service CP Hospitalists Primary Care Physician Non-Staff Admission Diagnosis Intractable vomiting Chief Complaint: n/v/d, inability to tolerate PO Travel History International Travel<30 Days: No Contact w/Intl Traveler <30 Da: No Traveled to Known Affected Are: No History of Present Illness 21 yo relatively healthy female presents with n/v/d which started appx 5 AM today. Has not been able to keep any liquid or solids down. Vomiting over 20x with subsequent dry heaves. Still with dry heaves despite several antiemetics. Also with watery diarrhea. No f/c No FT no unusual foods or known sick contacts. Review of Systems Constitutional: DENIES: Diaphoretic episodes, Fatigue, Fever, Weight gain, Weight loss, Chills, Dizziness, Change in appetite, Night Sweats Eyes: DENIES: Blurred vision, Diplopia, Eye inflammation, Eye pain, Vision loss , Photosensitivity, Double Vision Ears, nose, mouth, throat: DENIES: Tinnitus, Hearing loss, Vertigo, Nasal discharge, Oral lesions, Throat pain, Hoarseness, Ear Pain, Running Nose, Epistaxis, Sinus Pain, Toothache, Odynophagia Respiratory: DENIES: Apneas, Cough, Snoring, Wheezing, Hemoptysis, Sputum production, Shortness of breath Cardiovascular: DENIES: Chest pain, Palpitations, Syncope, Dyspnea on Exertion , PND, Lower Extremity Edema, Orthopnea, Claudication Gastrointestinal: COMPLAINS OF: Abdominal pain, Diarrhea, Nausea, Vomiting, DENIES: Black stools, Bloody stools, BRB per rectum, Constipation, GERD, Reflux , Difficulty Swallowing, Anorexia, See HPI Musculoskeletal: DENIES: Joint pain, Muscle aches, Stiffness, Joint Swelling, Back pain, Neck pain Integumentary: DENIES: Abnormal pigmentation, Pruritus, Rash, Nail changes, Breast masses, Breast skin changes, Nipple discharge Hematologic/lymphatic: DENIES: Bruising, Lymphadenopathy Immunologic/allergic: DENIES: Eczema, Urticaria Neurologic: DENIES: Abnormal gait, Headache, Localized weakness, Paresthesias, Seizures, Speech Problems, Tremor, Poor Balance Psychiatric: DENIES: Anxiety, Confusion, Mood changes, Depression, Hallucinations, Agitation, Suicidal Ideation, Homicidal Ideation, Delusions, History of Bipolar, History of Schizophrenia Past Family Social History Past Medical History negative Past Surgical History None Reported Medications None regularly Allergies: Coded Allergies: Penicillin (Verified Allergy, Severe, Hives, 01/11/17) Uncoded Allergies: ALL CILLINS (Allergy, Intermediate, HIVES, THROAT SWELLING, 07/09/16) Family History nc Social History Smokes 1/2 ppd for 4 yrs. 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 A few episodes of dry heaves during exam. Appears ill. SKIN: No rashes, ecchymoses or lesions. Cool and dry. Tattoos noted HEAD: Atraumatic. Normocephalic. No temporal or scalp tenderness. EYES: Pupils equal round and reactive. Extraocular motions intact. No scleral icterus. No injection or drainage. ENT: Nose without bleeding, purulent drainage or septal hematoma. Throat without erythema, tonsillar hypertrophy or exudate. Uvula midline. Airway patent. NECK: Trachea midline. No JVD or lymphadenopathy. Supple, nontender, no meningeal signs. CARDIOVASCULAR: Regular rate and rhythm without murmurs, gallops, or rubs. RESPIRATORY: Clear to auscultation. Breath sounds equal bilaterally. No wheezes , rales, or rhonchi. GASTROINTESTINAL: Abdomen soft, mildly distended with mild global ttp. No hepato -splenomegaly, or palpable masses. No guarding. BS slightly hyperactive MUSCULOSKELETAL: Extremities without clubbing, cyanosis, or edema. No joint tenderness, effusion, or edema noted. No calf tenderness. NEUROLOGICAL: Awake and alert. Cranial nerves II through XII intact. Motor and sensory grossly within normal limits. Five out of 5 muscle strength in all muscle groups. Normal speech. Laboratory Laboratory Tests Test 01/11/17 10:25 White Blood Count 14.9 Red Blood Count 5.26 Hemoglobin 15.2 Hematocrit 44.9 Mean Corpuscular Volume 85.3 Mean Corpuscular Hemoglobin 29.0 Mean Corpuscular Hemoglobin 34.0 Concent Red Cell Distribution Width 12.8 Platelet Count 293 Mean Platelet Volume 8.2 Neutrophils (%) (Auto) 78.5 Lymphocytes (%) (Auto) 14.0 Monocytes (%) (Auto) 6.7 Eosinophils (%) (Auto) 0.6 Basophils (%) (Auto) 0.2 Neutrophils # (Auto) 11.7 Lymphocytes # (Auto) 2.1 Monocytes # (Auto) 1.0 Eosinophils # (Auto) 0.1 Basophils # (Auto) 0.0 CBC Comment DIFF FINAL Differential Comment Sodium Level 143 Potassium Level 3.3 Chloride Level 110 Carbon Dioxide Level 18.2 Anion Gap 15 Blood Urea Nitrogen 12 Creatinine 0.80 Estimat Glomerular Filtration 90 Rate Random Glucose 133 Calcium Level 9.1 Total Bilirubin 1.0 Direct Bilirubin 0.2 Indirect Bilirubin 0.8 Aspartate Amino Transf 13 (AST/SGOT) Alanine Aminotransferase 26 (ALT/SGPT) Alkaline Phosphatase 95 Total Protein 7.6 Albumin 4.1 Lipase 100 Human Chorionic Gonadotropin, LESS THAN 1 Quant Result Diagram: 01/11/17 1025 01/11/17 1025 Imaging Last 72 hours Impressions Abdomen/Pelvis CT 01/11/17 0000 Signed Impressions: Service Date/Time: December 13:31 - CONCLUSION: 1. Mild hepatosplenomegaly. 2. Mild scoliosis of the thoraco-lumbar spine. Papi Amaro MD Assessment and Plan Problem List: (1) Gastroenteritis Status: Acute Plan: Continue antiemetics. Hydrate. Slowly advance diet to clear liquids as tolerated. Hopefully d/c home tomorrow. (2) Intractable nausea and vomiting Status: Acute Plan: as above Code Status full Discussed Condition With patient and ER MD Mosqueda,Ady Sheets MD PhD Jan 11, 2017 15:51
[2017-01-11] MEDS ORDERED: SODIUM CHLORIDE 0.9% FLUSH 10 ML FLUSH IV FLUSH SCH (21:00)
[2017-01-11] MEDS ORDERED: LACTOBACILLUS ACIDOPHILUS TAB PO SCH (22:00)
[2017-01-12] VITALS: BP 85/48; PULSE 60; RESP 16; TEMP 98.2; O2SAT 96
[2017-01-12 06:37] LABS: BICARBONATE 26.8 MEQ/L (21.0-32.0); POTASSIUM 4.2 MEQ/L (3.5-5.1)
--- NOTE | 2017-01-12 07:39 | HHI.PR ---
Subjective Remarks Doing much better. No vomiting since yesterday afternoon in the emergency room. Diarrhea has slowed as well. Has been tolerating clear liquids well. Objective Vitals Vital Signs Date Time Temp Pulse Resp B/P Pulse Ox O2 Delivery O2 Flow Rate FiO2 01/12/17 00:00 98.2 60 16 85/48 96 01/11/17 20:00 98.7 65 16 83/44 95 01/11/17 16:45 96.6 63 18 124/70 93 01/11/17 16:10 64 16 115/62 96 Room Air 01/11/17 15:02 64 18 124/73 95 Room Air 01/11/17 14:00 64 16 124/73 100 Room Air 01/11/17 12:25 77 16 105/67 100 Room Air 01/11/17 11:37 16 01/11/17 11:17 71 16 110/74 100 Room Air 01/11/17 10:44 97.7 93 18 119/68 98 Room Air 01/11/17 10:44 18 98 Room Air 01/11/17 09:59 97.8 97 22 115/65 99 01/11/17 01/11/17 01/12/17 15:00 23:00 07:00 Intake Total 1000 ml 420 ml 280 ml Balance 1000 ml 420 ml 280 ml Intake Oral 420 ml 280 ml IV Total 1000 ml # Voids 1 2 1 # Bowel Movements 1 0 0 GENERAL: Sleeping but arouses to voice. No acute distress. Alert and oriented. Appears much less ill than yesterday afternoon. SKIN: Warm and dry. HEAD: Normocephalic. EYES: No scleral icterus. No injection or drainage. NECK: Supple, trachea midline. No JVD or lymphadenopathy. CARDIOVASCULAR: Regular rate and rhythm without murmurs, gallops, or rubs. RESPIRATORY: Breath sounds equal bilaterally. No accessory muscle use. GASTROINTESTINAL: Abdomen soft, non-tender, nondistended. Bowel sounds normal. MUSCULOSKELETAL: No cyanosis, or edema. BACK: No CVA tenderness. Result Diagram: 01/11/17 1025 01/12/17 0445 Imaging Last 72 hours Impressions Abdomen/Pelvis CT 01/11/17 0000 Signed Impressions: Service Date/Time: December 13:31 - CONCLUSION: 1. Mild hepatosplenomegaly. 2. Mild scoliosis of the thoraco-lumbar spine. Papi Amaro MD Urinary Catheter: No Vascular Central Line Catheter: No A/P Problem List: (1) Gastroenteritis Status: Acute Plan: Much improved with hydration and antibiotics. We'll advance diet as tolerated. Hopefully discharge home later this morning. (2) Intractable nausea and vomiting Status: Acute Plan: as above Discharge Planning Discharge home later today hopefully. Ady Mosqueda MD PhD Jan 12, 2017 07:39
[2017-01-12] MEDS ORDERED: ONDA4TAB7 SL (07:42)
[2017-01-12 08:00] VITALS: BP 167/82; PULSE 86; RESP 19; TEMP 98; O2SAT 96
[2017-01-12 12:00] VITALS: BP 116/71; PULSE 63; RESP 18; TEMP 98.7; O2SAT 100
== END 2017-01-12 12:00 | disposition home or self-care (01) ==
LOC: PHED 09:56 → PHEDA 14:54 → PH3A 16:35
PROVIDERS: ADMIT Family Medicine; ATTEND Family Medicine
DX: K52.9 Noninfective gastroenteritis and colitis, unspecified (principal); F17.200 Nicotine dependence, unspecified, uncomplicated; Z88.0 Allergy status to penicillin
CPT/HCPCS: 74177; 80048; 80076; 83690; 84702; 85025; 96361; 96365; 96375; 96376; 99285; G0378; J0780; J1200; J2270; J2405; J2765; J3480; J7030; Q9967

== ENCOUNTER 2017-10-26 18:43 | Emergency (ER) | payer OTHER ==
[~2017-10-26] VITALS: Ht 175.3 cm; Wt 87.9 kg
[~2017-10-26 18:43] MED LIST changes: -HYDR-3534 PO; +ONDA4TAB7 SL; -PROM1SUP7 RECTAL; -ZOFR4TAB3 SL
[2017-10-26 18:50] VITALS: BP 122/67; PULSE 100; RESP 18; TEMP 99.2; O2SAT 99
--- NOTE | 2017-10-26 19:32 | PD ---
HPI Chief Complaint: Cold / Flu Symptoms Time Seen by Provider: 19:09 Travel History International Travel<30 days: No Contact w/Intl Traveler<30days: No Traveled to known affect area: No History of Present Illness HPI 22-year-old woman presents emergency department complaining of flulike symptoms ongoing for the past 2-3 days. Boyfriend was recently diagnosed with flu. She has had fevers chills cough congestion nausea vomiting ongoing for the past 4 days. Some myalgias as well. She is 17 weeks . She has had some nausea vomiting today. She has had a little bit nausea vomiting earlier in the as well but not this bad. No other complaints. History Past Medical History Medical History: Denies Significant Hx LMP: 17 WEEKS : 2 Para: 2 Social History Alcohol Use: Yes (RARE) Tobacco Use: No (1/2 PPD) Allergies-Medications (Allergen,Severity, Reaction): Coded Allergies: penicillin G (Unverified Allergy, Severe, Hives, 10/26/17) Uncoded Allergies: ALL CILLINS (Allergy, Intermediate, HIVES, THROAT SWELLING, 07/09/16) Reported Meds & Prescriptions Reported Meds & Active Scripts Active Ondansetron Odt 4 Mg Tab 4 Mg SL Q6HR PRN Review of Systems Except as stated in HPI: all other systems reviewed are Neg Physical Exam Narrative GENERAL: 21-year-old woman, generally well-appearing, no acute distress. SKIN: Focused skin assessment warm/dry. HEAD: Atraumatic. Normocephalic. EYES: Pupils equal and round. No scleral icterus. No injection or drainage. ENT: No nasal bleeding or discharge. Mucous membranes pink and moist. TMs normal. Throat is normal. NECK: Trachea midline. No adenopathy. No meningismus. CARDIOVASCULAR: Regular rate and rhythm. No murmur appreciated. RESPIRATORY: No accessory muscle use. Clear to auscultation. Breath sounds equal bilaterally. GASTROINTESTINAL: Abdomen soft, non-tender, nondistended. Hepatic and splenic margins not palpable. MUSCULOSKELETAL: No obvious deformities. Data Data Last Documented VS Vital Signs Date Time Temp Pulse Resp B/P (MAP) Pulse Ox O2 Delivery O2 Flow Rate FiO2 10/26/17 18:50 99.2 100 18 122/67 (85) 99 Orders Orders Heart Tones (10/26/17 19:21) [facility] Medical Decision Making Medical Screen Exam Complete: Yes Emergency Medical Condition: Yes Differential Diagnosis Flulike symptoms, URI, other Narrative Course Medical decision making INITIAL: Is a 19-year-old woman who presents emerged from complaining of flulike symptoms. Boyfriend positive for flu. She looks well. 17 weeks . Recommend Tamiflu, Zofran as needed for nausea or vomiting, outpatient follow-up. Diagnosis Primary Impression: Influenza Patient Instructions: General Instructions Additional Instructions: Take Tamiflu as prescribed. The Zofran if needed for nausea or vomiting. Follow with your OB doctor as scheduled. Return to the emergency department for any shortness of breath, worsening abdominal pain, bleeding, or any other new or worsening symptoms. Med/Other Pt SpecificInfo: Prescription(s) given Scripts Oseltamivir (Tamiflu) 75 Mg Cap 75 MG PO BID for Mgmt Viral Infection for 5 Days, #10 CAP 0 Refills Prov: Ranjit Young MD 10/26/17 Ondansetron Odt (Ondansetron Odt) 4 Mg Tab 4 MG SL Q6HR Y for Nausea/Vomiting, #10 TAB 0 Refills Prov: Ranjit Young MD 10/26/17 Disposition: 01 DISCHARGE HOME Condition: Stable Ranjit Young MD Oct 26, 2017 19:32
[2017-10-26] MEDS ORDERED: ONDA4TAB7 SL (19:37)
[2017-10-26] MEDS ORDERED: OSEL75 PO (19:37)
--- NOTE | 2017-10-26 19:38 | PD ---
Data Data Last Documented VS Vital Signs Date Time Temp Pulse Resp B/P (MAP) Pulse Ox O2 Delivery O2 Flow Rate FiO2 10/26/17 18:50 99.2 100 18 122/67 (85) 99 Orders Orders Heart Tones (10/26/17 19:21) Ed Discharge Order (10/26/17 19:37) MDM Supervised Visit with KAYLA: No Diagnosis Primary Impression: Influenza Patient Instructions: General Instructions Departure Forms: Tests/Procedures, Work Release Enter return to work date: Oct 29, 2017 Additional Instruction: Take Tamiflu as prescribed. The Zofran if needed for nausea or vomiting. Follow with your OB doctor as scheduled. Return to the emergency department for any shortness of breath, worsening abdominal pain, bleeding, or any other new or worsening symptoms. Scripts Oseltamivir (Tamiflu) 75 Mg Cap 75 MG PO BID for Mgmt Viral Infection for 5 Days, #10 CAP 0 Refills Prov: Ranjit Young MD 10/26/17 Ondansetron Odt (Ondansetron Odt) 4 Mg Tab 4 MG SL Q6HR Y for Nausea/Vomiting, #10 TAB 0 Refills Prov: Ranjit Young MD 10/26/17 Disposition: 01 DISCHARGE HOME Condition: Stable Ranjit Young MD Oct 26, 2017 19:38
[2017-10-26 20:27] VITALS: BP 99/62; TEMP 99.4
== END 2017-10-26 20:29 | disposition home or self-care (01) ==
LOC: PHED 18:43
DX: O99.512 Diseases of the respiratory system complicating pregnancy, second trimester (principal); J11.1 Influenza due to unidentified influenza virus with other respiratory manifestations; O21.9 Vomiting of pregnancy, unspecified; O99.332 Smoking (tobacco) complicating pregnancy, second trimester; F17.200 Nicotine dependence, unspecified, uncomplicated; Z88.0 Allergy status to penicillin; Z3A.17 17 weeks gestation of pregnancy
CPT/HCPCS: 99283